=== PATIENT | male | born 1980 | race African-American/Black ===

== ENCOUNTER 2016-07-08 12:50 | Emergency (ER) | payer MEDICAID ==
[~2016-07-08] VITALS: Ht 172.7 cm; Wt 80.3 kg
[2016-07-08 13:10] VITALS: BP 125/72
== END 2016-07-08 13:54 | disposition home or self-care (01) ==
LOC: ER 12:50
DX: J20.9 Acute bronchitis, unspecified (principal); J02.9 Acute pharyngitis, unspecified; J45.909 Unspecified asthma, uncomplicated
CPT/HCPCS: 71020